=== PATIENT | female | born 1950 | race African-American/Black ===

== ENCOUNTER 2017-03-15 09:08 | Emergency (ER) | payer OTHER ==
[~2017-03-15] VITALS: Ht 162.6 cm; Wt 100.3 kg
[~2017-03-15 09:08] MED LIST: ASPIRIN E.C.81 M1 PO; BYETTA PEN250 MCG/ML SC; FLONASE16 G1 BOTH NARES; FOLIC ACID; GLUCOPHAGE500 MG PO; GUAIFENESIN600 M1 PO; LEVOFLOXACIN500 MG PO; LIPITOR10 MG PO; LISINOPRIL; LORTAB 5-325 M1 EACH PO; OMEPRAZOLE40 M1 PO; PERCOCET 5/31 TABLET PO; TRAMADOL HCL50 MG PO; ZESTORETIC 20-1 EAC1 PO; ZOFRAN4 MG PO
[2017-03-15 10:49] LABS: HEMATOCRIT 40.3 % (36.0-46.0); MCH 27.7 PG (29.0-34.0); MCHC 32.3 G/DL (30.0-36.0); MCV 85.9 FL (83-99); MEAN PLAT.VOLUME 10.6 uM^3 (9.5-12.4); PLATELET COUNT 304 K/uL (156-360); RBC DIS.WIDTH-CV 13.2 % (11.8-14.6); RBC DIS.WIDTH-SD 41.1 % (39-53); RED BLOOD COUNT 4.69 M/uL (3.80-5.20); WHITE BLOOD COUNT 8.6 K/uL (4.1-10.2)
[2017-03-15 11:10] LABS: TROP-I INTERPRETATION NEGATIVE; TROPONIN-I < 0.01 ng/mL (0.0-0.30)
[2017-03-15 11:32] LABS: ANION GAP 8 MEQ/L (2-14); CHLORIDE 103 MEQ/L (99-109); POTASSIUM 4.7 MEQ/L (3.7-5.4); SAMPLE HEMOLYSIS CHECK 0; SAMPLE ICTERIC CHECK 0; SAMPLE LIPEMIA CHECK 0; SODIUM 141 MEQ/L (136-147)
[2017-03-15 11:38] LABS: GFR ESTIMATE (CALCULATED) 49 mL/min/; GLUCOSE 84 mg/dL (70-99); UREA NITROGEN (BUN) 21 mg/dL (9-23)
[2017-03-15 11:43] LABS: DIRECT BILIRUBIN 0.1 mg/dL (0.0-0.3); TOTAL BILIRUBIN 0.4 MG/DL (0.0-1.0)
[2017-03-15 11:49] LABS: ALKALINE PHOSPHATASE 107 IU/L (3-129)
[2017-03-15 12:21] LABS: ADD MIUA? NO; BILIRUBIN NEGATIVE; BLOOD NEGATIVE; COLOR YELLOW ((YELLOW)); GLUCOSE (STRIP) NEGATIVE; KETONES NEGATIVE; LEUKOCYTES NEGATIVE; NITRITE NEGATIVE; PROTEIN (STRIP) NEGATIVE; SPECIFIC GRAVITY 1.013 (1.000-1.030); UCUL ADDED? NO; UROBILINOGEN 0.2 MG/DL (0.2-1.0)
[2017-03-15 12:45] LABS: TROP-I INTERPRETATION NEGATIVE; TROPONIN-I < 0.01 ng/mL (0.0-0.30)
[2017-03-15 13:04] VITALS: BP 122/80
== END 2017-03-15 13:05 | disposition home or self-care (01) ==
LOC: EME 09:08
PROVIDERS: Emergency Medicine
DX: R07.89 Other chest pain (principal); R53.83 Other fatigue; I10 Essential (primary) hypertension; E78.5 Hyperlipidemia, unspecified; E11.9 Type 2 diabetes mellitus without complications; Z79.82 Long term (current) use of aspirin; Z87.891 Personal history of nicotine dependence; R55 Syncope and collapse
CPT/HCPCS: 71020; 80048; 80076; 81003; 84443; 84484; 85027; 93005; 99281; 99284

== ENCOUNTER 2017-06-01 10:53 | Emergency (ER) | payer OTHER ==
[~2017-06-01] VITALS: Ht 162.6 cm; Wt 96.0 kg
[2017-06-01 12:39] LABS: HEMATOCRIT 37.5 % (36.0-46.0); HEMOGLOBIN 12.7 G/DL (11.9-15.5); MCH 28.9 PG (29.0-34.0); MCHC 33.9 G/DL (30.0-36.0); MCV 85.4 FL (83-99); PLATELET COUNT 252 K/uL (156-360); RBC DIS.WIDTH-CV 13.2 % (11.8-14.6); RBC DIS.WIDTH-SD 40.7 % (39-53); RED BLOOD COUNT 4.39 M/uL (3.80-5.20); WHITE BLOOD COUNT 7.7 K/uL (4.1-10.2)
[2017-06-01 12:48] LABS: CHLORIDE 103 mEq/L (99-109); POTASSIUM 3.9 mEq/L (3.7-5.4); SODIUM 138 mEq/L (136-147)
[2017-06-01 12:50] LABS: GLUCOSE 156 mg/dL (70-99)
[2017-06-01 12:54] LABS: CREATININE 1.3 mg/dL (0.6-1.3); GFR ESTIMATE (CALCULATED) 53 mL/min/
[2017-06-01 12:55] LABS: UREA NITROGEN (BUN) 23 mg/dL (9-23)
[2017-06-01 12:58] LABS: TROP-I INTERPRETATION NEGATIVE; TROPONIN-I < 0.01 ng/mL (0.0-0.30)
[2017-06-01] MEDS ORDERED: MECLIZINE HCL25 MG PO (13:06)
[2017-06-01] MEDS ORDERED: ZOFRAN ODT4 MG PO (13:06)
[2017-06-01 13:34] VITALS: BP 135/85
== END 2017-06-01 13:34 | disposition home or self-care (01) ==
LOC: EME 10:53
PROVIDERS: Physician Assistant
DX: R42 Dizziness and giddiness (principal); E11.9 Type 2 diabetes mellitus without complications; I10 Essential (primary) hypertension; E78.00 Pure hypercholesterolemia, unspecified; E78.5 Hyperlipidemia, unspecified; Z79.82 Long term (current) use of aspirin; Z87.891 Personal history of nicotine dependence; Z88.8 Allergy status to other drugs, medicaments and biological substances
CPT/HCPCS: 71046; 80048; 84484; 85027; 93005; 99281; 99285; J2405